=== PATIENT | male | born 1970 | race Caucasian/White ===

== ENCOUNTER → 2019-04-02 15:50 | Outpatient (CLI) | payer OTHER, SELFPAY ==
--- NOTE | 2019-04-02 16:01 | EKG12_ITS ---
Test Reason : PREOP Blood Pressure : / mmHG Vent. Rate : 058 BPM Atrial Rate : 058 BPM P-R Int : 158 ms QRS Dur : 100 ms QT Int : 398 ms P-R-T Axes : 029 049 029 degrees QTc Int : 390 ms Sinus bradycardia Otherwise normal ECG No previous ECGs available Confirmed by SAKINA PATEL ([id number]), editor greeting card LISA DUNCAN ([id number]) on 04/04/2019 9:03:45 AM Referred By: Latrell Munroe Confirmed By:SAKINA PATEL
[2019-04-02 17:25] LABS: Hematocrit 45.8 % (40-54); Hemoglobin 15.7 g/dL (13.0-16.5); Mean Corp Hgb Conc 34.3 g/dL (32-36); Mean Corpuscular Hgb 31.2 pg (27.0-32.0); Mean Corpuscular Volume 90.9 fL (80-94); Mean Platelet Vol. 10.4 fl (6.2-12.0); Platelet Count 196 K/mm3 (150-450); RBC Distribution Width CV 12.6 % (11.6-14.6); Red Blood Count 5.04 M/mm3 (4.6-6.2)
[2019-04-02 18:00] LABS: Anion Gap 4 (5-15); BUN 25 mg/dL (7-18); BUN/Creat Ratio 18.1 RATIO (10-20); Calcium,Total 9.4 mg/dL (8.5-10.1); Chloride 109 mmol/L (98-107); Creatinine, Serum 1.38 mg/dL (0.70-1.30); EST Glomerular Filtration Rate 58 mL/min (>60); Est Glom Filt Rate - Afr Amer 70 mL/min (>60); Glucose 104 mg/dL (74-106); Potassium 3.8 mmol/L (3.5-5.1); Sodium Level 141 mmol/L (136-145)
== END ==
PROVIDERS: Family Provider Internal Medicine; PCP Internal Medicine; Referring Provider Physician Assistant; Visit Provider Physician Assistant
DX: Z01.810 Encounter for preprocedural cardiovascular examination (principal); Z01.818 Encounter for other preprocedural examination
CPT/HCPCS: 36415; 80048; 85027; 93005

== ENCOUNTER → 2020-11-12 15:09 | Outpatient (CLI) | payer OTHER, SELFPAY ==
[2020-11-12 15:51] LABS: Absolute Lymphocyte Count 1.53 X10^3/uL (0.83-4.51); Absolute Neutrophil Count 5.2 X10^3/uL (2.0-7.7); Basophil# 0.03 X10^3/uL; Basophil% 0.4 % (0-1); Eosinophil# 0.21 X10^3/uL; Eosinophils% 2.7 % (0-5); Hematocrit 48.4 % (40-54); Hemoglobin 16.7 g/dL (13.0-16.5); Lymphocyte # 1.53 X10^3/ul (0.83-4.51); Lymphocyte % 19.7 % (19-41); Mean Corp Hgb Conc 34.5 g/dL (32-36); Mean Corpuscular Hgb 31.1 pg (27.0-32.0); Mean Corpuscular Volume 90.1 fL (80-94); Mean Platelet Vol. 10.1 fl (6.2-12.0); Monocyte# 0.72 X10^3/uL; Monocyte% 9.3 % (0-10); NRBC Flagged by Analyzer 0 % (0-5); Neutrophil # 5.24 X10^3/uL (2.7-7.7); Neutrophil % 67.5 % (47-70); Platelet Count 201 K/mm3 (150-450); RBC Distribution Width CV 12.3 % (11.6-14.6); Red Blood Count 5.37 M/mm3 (4.6-6.2); White Blood Count 7.8 K/mm3 (4.4-11.0)
[2020-11-12 16:26] LABS: Anion Gap 5 (5-15); BUN 18 mg/dL (7-18); BUN/Creat Ratio 13.3 RATIO (10-20); Calcium,Total 8.5 mg/dL (8.5-10.1); Chloride 108 mmol/L (98-107); Creatinine, Serum 1.35 mg/dL (0.70-1.30); EST Glomerular Filtration Rate 59 mL/min (>60); Est Glom Filt Rate - Afr Amer 72 mL/min (>60); Glucose 101 mg/dL (74-106); Potassium 3.8 mmol/L (3.5-5.1); Sodium Level 140 mmol/L (136-145)
== END ==
PROVIDERS: PCP Internal Medicine; Referring Provider Surgery; Visit Provider Surgery
DX: R10.32 Left lower quadrant pain (principal)
CPT/HCPCS: 36415; 80048; 85025

== ENCOUNTER 2020-12-25 06:22 | Day surgery (SDC) | payer OTHER, SELFPAY ==
--- NOTE | 2020-12-25 06:41 | HP.PCM_ITS ---
HPI - General HPI Narrative RUSLAN ORLANDO, is a 50 M who presents for screening colonoscopy. Patient does not have any abdominal pain or blood in his stool. Patient does report a family history of colon cancer in his father in his 50s. Patient has never had a colonoscopy in the past. [facility] Medical History (Updated 12/25/20 @ 06:[address] Shorty Donahue MD) Alcohol use Arthritis Back pain History of stress test Hypertension Injury of back Non-smoker Thyroid disease Wears glasses Home Medications levothyroxine 112 mcg PO DAILY 12/22/20 [History Last Taken Unknown] Allergy/AdvReac Type Severity Reaction Status Date / Time tramadol [From Ultram] AdvReac Nausea/Vom/ Verified 12/22/20 12:11 Diarrhea Surgical History (Updated 12/22/20 @ 12:17 by Echo Sierra) Hx of appendectomy Hx of colonoscopy Hx of left knee surgery Social History Smoking Status: Never smoker Past Medical/Surgical History Planned Operation Planned Operative Procedure/s: COLON Previous Hospitalizations/Surgeries HX Hospitalizations: No Any Problems With Anesthesia: No You/Your Family Experience Fever (Hyperthermia) With Anes: No Cholinesterase deficiency: No Cardiovascular Hx Hypertension: Yes (NO MEDS) Respiratory Hx Sleep Apnea: No Hx Respiratory Tract Infection/Cold (presently): No Do You Snore Loudly (louder than talking or can be heard): No Do You Often Feel Tired/ Fatigued/ Sleepy Dring Daytime?: No Has Anyone Observed You Stop Breathing During Sleep?: No Result (for STOP score): Negative Smoking Status: Never smoker Neurological Does patient have nerve stimulator: No Allergies tramadol [From Ultram] Adverse Reaction (Verified 12/22/20 12:11) Nausea/Vom/Diarrhea Discharge Is Pt Admitted From a Alf, or a Custodial: No After D/C, Where Do you Plan to Go: Return Home Physical Exam Const alert and oriented x3 Resp normal respiratory effort and normal air movement Cardio regular rate and regular rhythm GI soft to palpation, non-tender and non-distended Assessment & Plan Assessment/Plan (1) Screen for colon cancer: PLAN: I explained endoscopy in detail to the patient. I explained the risks including but not limited to stroke or heart attack with anesthesia, perforation of the GI tract, bleeding, infection. I explained that any of these could necessitate further emergency surgery. The patient understands and all questions were answered sufficiently. The patient wishes to proceed with procedure. Shorty Donahue MD Pager: [facility] [address] [place] [address] [address] [place] [address] Office: Surgery Risks - Colonoscopy Risks Include but are not Limited To: Risks include but are not limited to: Bleeding, perforation requiring further surgery, inability to complete colonoscopy requiring barium enema.
[2020-12-25 06:52] VITALS: BP 129/96; PULSE 64; RESP 16; TEMP 36.6; O2SAT 99; BMI 29.7
[2020-12-25] MEDS: Lactated Ringers 1,000 ML 100 ML IV (06:57)
[2020-12-25 07:40] VITALS: BP 111/78; BP 129/96; PULSE 63; RESP 16; TEMP 36.3; O2SAT 96
--- NOTE | 2020-12-25 07:44 | OP.CCLET_ITS ---
12/25/2020 Tammy Cason [address] [place] [address] Re : Colonoscopy procedure for Panda Mac Dear Dr. Cason This procedure was performed on Friday, December 25, 2020. My impressions and recommendations are as follows: Impressions : - The entire examined colon is normal on direct and retroflexion views. - No specimens collected. Recommendations : - Discharge patient to home. - Resume previous diet. - Continue present medications. - Repeat colonoscopy in 5 years for screening purposes. My findings are described in the full procedure note, which is enclosed. If I can be of further assistance, please feel free to contact me at Doctor phone number(s): , Work: . Sincerely, Shorty Donahue MD 12/25/2020 7:43:14 AM This report has been signed electronically.
--- NOTE | 2020-12-25 07:44 | OP.COLON_ITS ---
Patient Name: Panda Mac Procedure Date: 12/25/2020 7:16 AM Date of : 1970 Age: 50 Procedure: Colonoscopy Indications: Screening in patient at increased risk: Colorectal cancer in father before age 60 Providers: Shorty Donahue MD Referring MD: Shorty Donahue MD Medicines: Monitored Anesthesia Care Patient Profile: This is a 50 year old male. Refer to note in patient chart for documentation of history and physical. Last Colonoscopy: 5 years ago. Complications: No immediate complications. Procedure: Pre-Anesthesia Assessment: - Prior to the procedure, a History and Physical was performed, and patient medications and allergies were reviewed. The patient's tolerance of previous anesthesia was also reviewed. The risks and benefits of the procedure and the sedation options and risks were discussed with the patient. All questions were answered, and informed consent was obtained. Prior Anticoagulants: The patient has taken no previous anticoagulant or antiplatelet agents. After reviewing the risks and benefits, the patient was deemed in satisfactory condition to undergo the procedure. After I obtained informed consent, the scope was passed under direct vision. Throughout the procedure, the patient's blood pressure, pulse, and oxygen saturations were monitored continuously. The colonoscope was introduced through the anus and advanced to the cecum, identified by appendiceal orifice and ileocecal valve. The colonoscopy was performed without difficulty. The patient tolerated the procedure well. The quality of the bowel preparation was good. Scope In: 7:27:29 AM Scope Withdrawal Time 0 hours 6 minutes 17 seconds Scope Out: 7:36:57 AM Total Procedure Duration Time 0 hours 9 minutes 28 seconds Findings: The entire examined colon appeared normal on direct and retroflexion views. Impression: - The entire examined colon is normal on direct and retroflexion views. - No specimens collected. Recommendation: - Discharge patient to home. - Resume previous diet. - Continue present medications. - Repeat colonoscopy in 5 years for screening purposes. Procedure Code(s): --- Professional --- 89477, Colonoscopy, flexible; diagnostic, including collection of specimen(s) by brushing or washing, when performed (separate procedure) Diagnosis Code(s): --- Professional --- Z80.0, Family history of malignant neoplasm of digestive organs CPT copyright 2017 [employer]. All rights reserved. The codes documented in this report are preliminary and upon tamale maker review may be revised to meet current compliance requirements. Shorty Donahue MD 12/25/2020 7:43:14 AM This report has been signed electronically. Number of Addenda: 0 Note Initiated On: 12/25/2020 7:16 AM
[2020-12-25 07:45] VITALS: BP 112/87; BP 129/96; PULSE 59; RESP 16; O2SAT 96
[2020-12-25 07:50] VITALS: BP 114/76; BP 129/96; PULSE 72; RESP 16; O2SAT 99
[2020-12-25 07:56] VITALS: BP 118/86; BP 129/96; PULSE 62; RESP 16; TEMP 36.6; O2SAT 97
[2020-12-25 08:11] VITALS: BP 129/96
== END 2020-12-25 08:14 ==
LOC: EN 06:23 → AC 06:24
PROVIDERS: PCP Internal Medicine; Referring Provider Surgery; Visit Provider Surgery
PROC: 0DJD8ZZ Inspection of Lower Intestinal Tract, Via Natural or Artificial Opening Endoscopic (ICD-10-PCS; CPT 45378; principal; 2020-12-25 07:25)
DX: Z12.11 Encounter for screening for malignant neoplasm of colon (principal); E07.9 Disorder of thyroid, unspecified; M19.90 Unspecified osteoarthritis, unspecified site; Z80.0 Family history of malignant neoplasm of digestive organs; Z72.89 Other problems related to lifestyle; Z79.899 Other long term (current) drug therapy
CPT/HCPCS: 45378; 87426; C9803; J7120; J2405

== ENCOUNTER → 2023-01-26 | Outpatient (CLI) | payer OTHER, SELFPAY ==
--- NOTE | 2023-01-26 06:48 | CT_ITS ---
PROCEDURE: CT LEFT KNEE WITHOUT CONTRAST REASON FOR EXAM: Male, 52 years old. Preoperative planning for the Mako[employer] Robotic knee surgery. Knee pain. TECHNIQUE: Transaxial CT of the hip, knee and ankle were obtained. Coronal and sagittal reconstruction images of the knee were provided. Individualized dose optimization techniques were used for this CT. COMPARISON: None. FINDINGS: Standard protocol for the preoperative planning for the MakoPlasty robotic knee surgery was performed. There is mild osteoarthrosis of the hip, knee and ankle. CT/Extremity Lower without Contra IMPRESSION: Preoperative MakoPlasty Robotic knee surgical CT evaluation with findings as described above. Electronically Signed: Latrell Kate MD at 9:38 EST ,
== END | disposition home or self-care (01) ==
PROVIDERS: PCP Internal Medicine; Referring Provider Orthopaedic Surgery; Visit Provider Orthopaedic Surgery
DX: M17.12 Unilateral primary osteoarthritis, left knee (principal)
CPT/HCPCS: 73700

== ENCOUNTER 2023-02-20 05:27 | Day surgery (SDC) | payer OTHER, SELFPAY ==
--- NOTE | 2023-01-30 07:24 | EKG12_ITS ---
Test Reason : PREOP Blood Pressure : / mmHG Vent. Rate : 056 BPM Atrial Rate : 056 BPM P-R Int : 154 ms QRS Dur : 084 ms QT Int : 422 ms P-R-T Axes : -03 -03 010 degrees QTc Int : 407 ms Sinus bradycardia Otherwise normal ECG Confirmed by KRISTINA POTTS ([id number]), editor at large DEYA SON ([id number]) on 01/30/2023 11:24:02 AM Referred By: Andre Renee Confirmed By:KRISTINA POTTS
[2023-01-30 08:17] LABS: Absolute Lymphocyte Count 2.35 X10^3/uL (0.83-4.51); Absolute Neutrophil Count 4.5 X10^3/uL (2.0-7.7); Basophil# 0.05 X10^3/uL; Basophil% 0.6 % (0-1); Eosinophil# 0.17 X10^3/uL; Eosinophils% 2.2 % (0-5); Hematocrit 50.8 % (40-54); Hemoglobin 16.6 g/dL (13.0-16.5); Lymphocyte # 2.35 X10^3/ul (0.83-4.51); Lymphocyte % 30.4 % (19-41); Mean Corp Hgb Conc 32.7 g/dL (32-36); Mean Platelet Vol. 10.2 fl (6.2-12.0); Monocyte# 0.64 X10^3/uL; Monocyte% 8.3 % (0-10); NRBC Flagged by Analyzer 0 % (0-5); Neutrophil # 4.47 X10^3/uL (2.7-7.7); Platelet Count 205 K/mm3 (150-450); RBC Distribution Width CV 13.2 % (11.6-14.6); RBC Distribution Width SD 46.1 fl (35.1-43.9); Red Blood Count 5.35 M/mm3 (4.6-6.2); White Blood Count 7.7 K/mm3 (4.4-11.0)
[2023-01-30 08:47] LABS: Anion Gap 5 (5-15); BUN 21 mg/dL (7-18); BUN/Creat Ratio 16.7 RATIO (10-20); Chloride 104 mmol/L (98-107); Creatinine, Serum 1.26 mg/dL (0.70-1.30); EST Glomerular Filtration Rate 64 mL/min (>60); Est Glom Filt Rate - Afr Amer 77 mL/min (>60); Glucose 113 mg/dL (74-106); Potassium 4.1 mmol/L (3.5-5.1); Sodium Level 139 mmol/L (136-145)
[2023-01-30 09:16] LABS: Magnesium 2.4 mg/dL (1.6-2.6)
[2023-01-30 09:47] LABS: Hemoglobin A1c 5.1 % (3.8-5.6)
[2023-02-20] VITALS (9 sets, daily range): BP systolic 111–148; BP diastolic 68–98; PULSE 59–75; RESP 16; TEMP 36.2–36.9; O2SAT 95–100; BMI 30.7
[2023-02-20] MEDS: Acetaminophen 500 MG Tablet 1000 MG PO ×2 (06:16→14:05)
[2023-02-20] MEDS: Lactated Ringers 1,000 ML 15 ML IV (06:17)
[2023-02-20] MEDS: Gabapentin 600 MG Tablet PO (06:17)
[2023-02-20] MEDS: Magnesium 1 GM over 15 mins IV (06:18)
[2023-02-20 07:09] LABS: Bedside Glucose 140 mg/dL (74-106)
--- NOTE | 2023-02-20 07:30 | KNEE_PTH ---
PATIENT: RUSLAN ORLANDO [place] [facility] [place][id number] AGE/SX: 52/M ROOM: RE02/20/[address]: Dr. Andre Renee DO : 1970 BED: DIS: 02/20/2023 SPEC #: [id number] RECD: 02/20/23 10:13 STATUS: AMY REShaun #: [id number] PATRICIA: 02/20/23 07:[address]: Andre Renee DEPT: SURGICAL PATHOLOGY RECD BY: Huma Adams ENTERED: 02/20/23 11:20 SP TYPE: TOTAL KNEE OTHR DR: Dr. Tammy Cason, Tissues: Knee, NOS Procedures: Decalcification bone/plaque Surgery Specimen Level IV HEADER OPERATION: ERAS, robotic assisted left total knee arthroplasty, removal PRE-OP DIAGNOSIS: Grade IV osteoarthritis left knee, plantar fasciitis bilateral feet TISSUE SUBMITTED: Left knee bone and tissue MICROSCOPIC DIAGNOSIS Bone and tissue of left knee, total knee resection: Severe degenerative joint disease. Mild synovial hyperplasia. AM:deandra 02/23/2023 MICROSCOPIC DESCRIPTION Slides are reviewed. GROSS DESCRIPTION Received is one container designated bone and soft tissue left knee. The specimen consists of multiple fragments of mello-yellow bone measuring in aggregate 12.0 x 10.0 x 3.5 cm. Also in the specimen container are multiple fragments of yellow-white soft tissue measuring in aggregate 9.0 x 9.0 x 3.0 cm. A number of bony fragments contain articular surfaces consistent with tibial plateau and femoral condyle and displaying prominent osteophyte formation, eburnation and bone erosion. Manager Provider Relations sections are submitted in two cassettes as follows: 1 - bone after decalcification, 2 - soft tissue. / SJ:deandra 02/20/2023 TC:[address] [facility]: [id number], [id number]
[2023-02-20] MEDS: Cefazolin 2 GM in 0.9% Normal Saline (100mL Bag) 100 ML IV (07:42)
[2023-02-20] MEDS: TXA 1000mg in NS100 100ml (IVPB at Incision) 660 MG IV (08:03)
[2023-02-20] MEDS: TXA 1000mg in NS100 100ml (IVPB at Closure) 660 MG IV (09:25)
[2023-02-20] MEDS: JPS (Morphine 10mg/ml) OPERA.SITE (09:50)
--- NOTE | 2023-02-20 10:17 | OP.PCM_ITS ---
Report of Operation Date of Procedure: 02/20/23 Pre-Operative Diagnosis: Post-traumatic OA left knee with retained hardware from previous ACL reconstruction Post-Operative Diagnosis: same Surgery/Procedure Performed:: Left TKR with [id number] of retained hardware Description of Surgical Findings:: Report of Operation Date of Procedure: 02/20/2023 Preoperative Diagnosis: [ left ] knee post traumatic osteoarthritis with retained hardware from previous ACL reconstruction Postoperative Diagnosis: [ left ] knee post traumatic osteoarthritis with retained hardware from previous ACL reconstruction Operation: Robotic Assisted Knee Total Arthroplasty with removal of tibial screw, [ left ] knee Surgeon: Dr Andre Renee DO [employer] Supervisor: Elizabeth Ch PA-C Anesthesia: spinal Anesthesiologist: Trevin Ovalles M.D. Findings: Stable knee with good patella tracking Specimen(s): Bony cuts Complications: No intraoperative complications Estimated Blood Loss: IV Fluids: 1000 cc crystalloid Implants Used: 1. Ethel Triathlon press-fit CR size 4 femur 2. Crispin Triathlon size 5 tibia 3. 32 mm patella 4. 10 mm CS polyethylene Brief History Operative Indications: [ (52 y/o male) ] with history of [left ] knee osteoarthrosis status post ACL reconstruction with radiographic findings with loss of joint space, osteophyte formation and subchondral sclerosis. Failed conservative measures as mentioned in the H&P. Discussion of total knee arthroplasty as well as risk and benefits were discussed with the patient including but not limited to blood loss, DVTs, PEs, neurovascular damage, general risk of anesthesia including loss of life, and stiffness or instability were also discussed with the patient. Patient demonstrated understanding and was able to sign informed consent. Procedure: On the date of procedure, patient's [ left ] lower extremity was marked in the preoperative area. The patient was then taken back to the operating room where that patient was placed on the table in the supine position. All bony prominences were identified and well-padded. Anesthesia assumed control of the C-spine and airway throughout the remainder of the procedure. A tourniquet was placed on the [left ] upper thigh and the leg was prepped in a sterile fashion. The surgeon then scrubbed at this time. Upon reentering the room, the [left ] lower extremity was draped in a standard orthopedic fashion. A timeout was then called and everyone agreed upon the side, the site, the procedure to be performed, patient's identity and antibiotics given. Esmarch bandage was used to exsanguinate the extremity and the tourniquet was placed up to 250 mmHg with the knee in flexion. A midline skin incision was made and a sharp dissection was taken down through skin, subcutaneous tissue and fat. The standard medial parapatellar incision was made and the patella was subluxed laterally. An appropriate deep MCL release was done and the fat pad was resected. The anteromedial tibia was cleared of soft tissue and the head of the tibial interference screw from his previous ACL reconstruction was identified. Bone was removed from the head of the screw and the screw was removed using a [place] screw mule driver. Our attention was then directed to the patella. The patella was everted and a flat resection was made. The knee was then flexed up and 2 femoral pins were placed inside the incision and 2 tibial pins were placed outside the incision in the medial tibia bicortically. Once this was completed, the 2 checkpoints in the femur and tibia were placed. Knee was then flexed up and the bony landmarks were registered. Once the was completed, the knee taken through range of motion and manually stressed allowing us to plan for an appropriate tibial cut. The robotic arm was brought into the field sterilely and checkpoint and saw were registered. Based on the patient's deformity, the tibial cut was made in [ neutral ]. At this time, the tensioner was then placed in the joint and ligament tension was checked at 90 degrees and full extension. Based on the patient's ligamentous tension, appropriate adjustments were made to the operative plan and ligament releases were done. Once we were happy with our operative plan with balanced flexion and extension gaps, our attention was directed to the femur. The robot was brought into the field sterilely and registered. Posterior condylar cuts, anterior chamfer cuts and anterior cuts were appropriately made for a [size 4 ] femur. When these were completed, the saws were switched out in the distal femoral and posterior chamfer cuts were made. Protecting the soft tissue throughout this time. A [ size 5 ] base plate was selected. The knee was flexed to 90 degrees and soft tissues and posterior osteophytes were removed from the joint. 40 cc of the periarticular injection was injected into the posterior medial corner of the joint. The appropriate trials were then placed on the femur and tibia. A trial polyethylene was trialed to ensure proper balancing and stability of the knee. The appropriate tibial internal rotation was then marked with a bovie. Our attention was then directed to the patella. The lug holes were drilled and the patella trial was placed. Patellar tracking was checked and deemed appropriate. Once we were happy, lug holes were drilled for the femur and trial components were removed. The tibia was subluxed and pinned into place and the keel was punched and drilled appropriately. Final components were verified and opened. The wound was copiously irrigated with normal saline. The components were impacted into place with the tibia, femur and finally the patella. The trial poly component was placed and the knee was placed in full extension. The tracking, alignment and balance were verified and a [10 mm CS ] polyethylene component was placed. Once the final components were placed an Irrisept lavage was performed and the wound was copiously irrigated with normal saline solution and the periarticular injection was given. the wound was closed in a layer-rodriguez fashion using #1 vicryl interrupted sutures for the arthrotomy, 2-0 interrupted vicryl suture for the subcuticular layer and gurmeet for final skin closure. A sterile compressive dressing was then placed. The patient was then awakened from anesthesia, transferred to the [facility] and transferred to the PACU for recovery. My physician medical assistant per diem was a vital part of this case. He was important in appropriate retraction during the case, and protection of soft tissues during bony cuts. His intimate knowledge of the case and my steps aided in safe and expedient completion of the procedure as well as appropriate position of the leg during the case. He was also vital in assisting with closure under my direct supervision. Due to the complexity of this case, robotic arm was used to assist in the surgery to improve accuracy and clinical outcomes. Post-op Plan: DVT ppx; ASA 81 mg BID, thigh high compression stockings Follow up: in office in 2 weeks for wound check PT: to start POD #0 at hospital, outpatient PT should be arranged. Preoperative antibiotic: Anceef 2 grams IV Andre Renee DO Surgeon: Andre Renee industrial cafeteria manager: Elizabeth Ch Type of Anesthesia: Spinal Anesthesiologist: Trevin Ovalles Admfranck VTE Documentation VTE Present on Admission: No VTE Mechan Device Prophylaxis: SCD's and Thigh High PAL Hose VTE Pharm Prophylaxis ordered?: Yes
--- NOTE | 2023-02-20 10:50 | RAD_ITS ---
STUDY: X-RAY - LEFT KNEE REASON FOR EXAM: Male, 52 years old. Post op -- in PACU TECHNIQUE: 2 view(s) of the knee. COMPARISON: None. FINDINGS: Normal visualized distal femur. Normal visualized proximal tibia and fibula. Normal proximal tibiofibular articulation. The patient is status post total knee replacement. There is good alignment. Postoperative soft tissue changes. RAD/Knee 1 or 2 Views IMPRESSION: Status post total knee replacement. There is good alignment. Postoperative soft tissue changes. Electronically Signed: Faustino Raines MD at 14:29 EST ,
[2023-02-20] MEDS: Lactated Ringers 1,000 ML 999 ML IV (11:07)
--- NOTE | 2023-02-20 12:33 | SUR.PHASEII ---
Incentive Spirometer given to pt and instructed. Pt performed well.
[2023-02-20] MEDS: Lactated Ringers 1,000 ML 125 ML IV (12:55)
== END 2023-02-20 16:30 | disposition home or self-care (01) ==
LOC: SDC 05:28 → AC 05:28
PROVIDERS: Anesthesiology; PCP Internal Medicine; Referring Provider Orthopaedic Surgery; Visit Provider Orthopaedic Surgery
PROC: 0SRD0JZ Replacement of Left Knee Joint with Synthetic Substitute, Open Approach (ICD-10-PCS; CPT 27447; principal; 2023-02-20 07:00)
DX: M17.12 Unilateral primary osteoarthritis, left knee (principal); E07.9 Disorder of thyroid, unspecified; Z79.899 Other long term (current) drug therapy
CPT/HCPCS: 27447; 64447; S2900; 36415; 73560; 80048; 82962; 83036; 83735; 84443; 85025; 87081; 88305; 88311; 93005; 97162; C1776; J7120; J2405; J3475